=== PATIENT | female | born 1975 | race Caucasian/White ===

== ENCOUNTER 2020-07-13 11:38 | Emergency (ER) | payer OTHER, SELFPAY ==
[2020-07-13 11:39] VITALS: BP 137/83; PULSE 80; RESP 16; TEMP 36.6; O2SAT 97; BMI 28.2
--- NOTE | 2020-07-13 12:03 | ED.VISSUMM ---
- ER Visit Summary Date of Service: 07/13/20 Chief Complaint: Right shoulder pain History of Present Illness: The patient is a 45 F who presents with right shoulder pain that began 2 days ago. Patient states she was at work and camper steps fell onto her right shoulder. Patient was seen at an urgent care and had x-rays. Patient states she was told it was just a bruise. Patient states the pain is getting worse. Patient describes her pain as constant dull and aching. Patient states her pain becomes sharp and stabbing when she moves it and lifts anything. Patient denies any paresthesias or weakness. Patient states the pain does radiate into her neck. Physical Examination: Vital signs are stable. Patient is afebrile. Patient is in no acute distress. Musculoskeletal exam reveals tenderness over the anterior aspect of the right shoulder along the bicep tendon. There is no deformity noted. There is no tenderness over the acromioclavicular joint or distal clavicle. There is no bony crepitance or step-off. There is no edema or ecchymosis. Range of motion was limited in all motions of the right shoulder secondary to pain. Strength is 5/5 in the radial, median, and ulnar areas. Sensation was intact light touch in the radial, median, ulnar, and axillary areas. Radial pulses are equal bilaterally. Test Results: X-rays of the right shoulder were obtained. There is no acute fracture or dislocation. These were interpreted by the radiologist and myself. Emergency Department Course and Treatment: Patient was given a dose of Waldron here. Patient was given an ice pack. Patient was given a sling for comfort. Patient was given a prescription for Naprosyn. Patient was instructed to take her arm out of the sling 4-5 times per day and do range of motion exercises to prevent frozen shoulder. Patient was instructed to follow-up with a primary care physician in 5 to 7 days. Patient understood and was agreeable with the plan. All questions were answered. Disposition: Discharge home Impression: 1. Right shoulder pain 2. Bicep tendinitis This note was generated with [employer] software. It may contain incorrect words, spelling, and punctuation that were not noted in review of the chart prior to signing ED Disposition - Plan for ED Patient: Disposition: Home or Assisted Living Diagnosis: Right anterior shoulder pain, Biceps tendinitis of right shoulder Instructions: ED MARTY, ED Shoulder Pain Uncertain Cause Prescriptions: Naproxen [Naprosyn] 500 mg PO BID PRN #20 tab Prescription Printed Referrals: [facility],Out of [NON-STAFF] - 5-7 Days Noah Scott MD [STAFF PHYSICIAN] - 5-7 Days
--- NOTE | 2020-07-13 12:05 | RAD_ITS ---
STUDY: X-RAY - RIGHT SHOULDER REASON FOR EXAM: Right shoulder pain, fall. TECHNIQUE: 4 view(s) of the shoulder. COMPARISON: None. FINDINGS: Normal glenohumeral articulation. Normal acromioclavicular joint. Normal acromion. Normal humeral head and visualized proximal humerus. The soft tissue structures are unremarkable. There is a calcified granuloma in the right lung and calcified hilar lymph nodes. RAD/Shoulder min 2 Views IMPRESSION: Normal x-ray examination of the right shoulder. Electronically Signed: German Lane MD at 12:29 EDT Tel , Service support ,
[2020-07-13] MEDS: HYDROcodone Bitartrate/Apap 5/325 Tablet PO (12:09)
== END 2020-07-13 13:54 | disposition home or self-care (01) ==
PROVIDERS: Emergency Provider Emergency Medicine
DX: M75.21 Bicipital tendinitis, right shoulder (principal); M25.511 Pain in right shoulder; M54.2 Cervicalgia; W20.8XXA Other cause of strike by thrown, projected or falling object, initial encounter; Y93.9 Activity, unspecified; Y92.9 Unspecified place or not applicable; Y99.0 Civilian activity done for income or pay
CPT/HCPCS: 73030; 99283

== ENCOUNTER 2020-09-23 23:42 | Emergency (ER) | payer OTHER, SELFPAY ==
[2020-09-23 23:43] VITALS: BP 115/75; PULSE 99; RESP 16; TEMP 37; O2SAT 100; BMI 33.0
[2020-09-24] MEDS: 0.9% Normal Saline 1,000 ML 250 ML IV (00:03)
[2020-09-24] MEDS: Ketorolac 15 MG/ML Vial IV (00:03)
--- NOTE | 2020-09-24 00:03 | ED.DCSUM_ITS ---
History of Present Illness Chief Complaint: Abd Pain Informant: Patient Onset: Today Narrative: Sudden burning pain suprapubic wrapping around the left side 10:45 PM after awakening to use the bathroom. States felt some dysuria while urinating when symptoms occurred. No fever. Initial nausea that resolved. No diarrhea. History kidney stones last time 2 years ago there is been no interventions. No medications taken. Denies history of gastric ulcers or kidney injury. Prior similar symptoms: Yes Past Medical History - Allergies and Home Meds Allergies/Adverse Reactions: Allergies dextromethorphan [From Entex PAC] Adverse Reaction (Verified 09/23/20 23:43) NEEDS FOLLOW-UP passes out guaifenesin [From Entex LA] Adverse Reaction (Verified 09/23/20 23:43) NEEDS FOLLOW-UP passes out nitrofurantoin [From Macrobid] Adverse Reaction (Verified 09/23/20 23:43) NEEDS FOLLOW-UP passes out phenylephrine [From Entex LA] Adverse Reaction (Verified 09/23/20 23:43) NEEDS FOLLOW-UP passes out phenylpropanolamine [From Entex LA] Adverse Reaction (Verified 09/23/20 23:43) NEEDS FOLLOW-UP passes out pseudoephedrine [From Entex PAC] Adverse Reaction (Verified 09/23/20 23:43) NEEDS FOLLOW-UP passes out DERMABOND Adverse Reaction (Uncoded 09/23/20 23:43) Rash Primary Care Physician: Woody Fontaine III, MD [STAFF PHYSICIAN] - 3-5 Days Care Physician,No Primary [Primary Care Provider] - Past Medical History: - - Kidney stones Smoking Status: Former smoker Review of Systems General: Denies: Chills, Fever, Sweats Eyes: Denies: Visual changes - bilaterally, Diplopia ENT: Denies: Rhinorrhea, Sore throat Cardiovascular: Denies: Chest pain, Palpitations Respiratory: Denies: Dyspnea, Cough, Dyspnea on exertion Gastrointestinal: Reports: Abdominal pain. Denies: Nausea, Vomiting, Diarrhea, Melena, Hematochezia Genitourinary: Reports: Dysuria. Denies: Hematuria, Frequency Musculoskeletal: Denies: Back pain, Extremity Pain Skin: Denies: Rash, Wounds Neurological: Denies: Headache, Weakness, Numbness Physical Exam Vital Signs/Narrative: Vital Signs Temp Pulse Resp BP Pulse Ox 09/23/20 23:43 98.6 F 99 16 115/75 100 Inital Vital Signs reviewed: Yes General: Well nourished, Well developed, - - Mild uncomfortable. Head: Normocephalic, Atraumatic Eyes: Perrl, EOMI ENT: Moist mucous membranes, No rhinorrhea Neck: Supple, Nontender Cardiovascular: Regular rate, Regular rhythm, No murmurs Respiratory: No distress, CTA bilaterally, Chest nontender Abdomen: Soft, Nontender, Nondistended, Normal bowel sounds, - - Negative McBurney's tenderness, no pain left lower quadrant.. Negative for: Grant's sign Back: Nontender, Normal Inspection. Negative for: CVA tenderness Extremities: Nontender, No edema Skin: Normal color, No rash Neurological: Alert, Oriented x3, Cranial nerves II-XII grossly intact, Normal S trength, Normal Sensation Psychological: Normal affect, Normal Mood Diagnostic/Tx/Re-eval Clinical Impression(s) from Imaging Studies Abdomen/Pelvis CT 09/24/20 23:53 IMPRESSION: There is a small umbilical hernia containing fat. Electronically Signed: Dona West, at 0:51 EST Tel , Service support , Abnormal Lab Results 09/23/20 09/23/20 09/24/20 23:48 23:48 00:10 WBC 8.8 RBC 4.67 Hgb 13.7 Hct 42.4 MCV 90.8 MCH 29.3 MCHC 32.3 RDW Std Deviation 44.8 H RDW Coeff of Darwin 13.5 Plt Count 375 MPV 9.5 Immature Gran % (Auto) 0.200 Neut % (Auto) 56.1 Lymph % (Auto) 26.3 [place] % (Auto) 13.0 H Eos % (Auto) 3.9 Baso % (Auto) 0.5 Absolute Neuts (auto) 4.9 Absolute Lymphs (auto) 2.31 Nucleated RBC % 0 Sodium 140 Potassium 3.8 Chloride 107 Carbon Dioxide 26.0 Anion Gap 7 BUN 11 Creatinine 1.03 H Estim Creat Clear Calc 71.32 Est GFR (MDRD) Af Amer 74 Est GFR (MDRD) Non-Af 61 BUN/Creatinine Ratio 10.7 Glucose 125 H Calcium 9.0 Urine Color Yellow Urine Clarity Cloudy Urine pH 7.0 Ur Specific Fisher 1.010 Urine Protein 30 H Urine Glucose (UA) Normal Urine Ketones Negative Urine Occult Blood 50 H Urine Nitrite Negative Urine Bilirubin Negative Urine Urobilinogen 1 H Ur Leukocyte Esterase 500 H Urine RBC 10-25 SEEN Urine WBC 50-100 SEEN Ur Squamous Epith Cells 0 SEEN Urine Bacteria 0 SEEN Urine Mucus 0 SEEN - Medical Decision Making Patient vitals stable with dysuria sudden pain rating to the back. Renal stone protocol initiated. Labs stable urine noted infection with blood. CT scan negative for any obstructive uropathy. Noted fat-containing umbilical hernia. Patient nontender in this region. Required 2 doses of pain medicines. Rediscussion she states more spasms. She was given Rocephin antibiotics to start in the ED. Written for Bentyl for spasms short prescription for [place], Keflex for antibiotics. Return precautions discussed. Follow-up given as an outpatient. All questions were answered. ED Disposition - Plan for ED Patient: Disposition: Home or Assisted Living Diagnosis: UTI (urinary tract infection), Abdominal pain Instructions: Understanding Urinary Tract Infections (UTIs), ED Bladder Gcn-[id number]-Josmrg chil Prescriptions: Dicyclomine HCl [Bentyl] 10 mg PO TID PRN #20 cap PRN Reason: abdominal pain Prescription Printed Cephalexin [Keflex] 500 mg PO Q12 #14 cap Prescription Printed Hydrocodone Bitart/Apap 5-325 [[place] 5MG-325MG] 1 tab PO Q6H PRN PRN 3 Days #10 tab PRN Reason: Pain Prescription Printed Referrals: Care Physician,No Primary [Primary Care Provider] - Woody Fontaine III, MD [STAFF PHYSICIAN] - 3-5 Days
[2020-09-24 00:04] LABS: Absolute Lymphocyte Count 2.31 X10^3/uL (0.83-4.51); Absolute Neutrophil Count 4.9 X10^3/uL (2.0-7.7); Basophil# 0.04 X10^3/uL; Basophil% 0.5 % (0-1); Eosinophil# 0.34 X10^3/uL; Eosinophils% 3.9 % (0-5); Hematocrit 42.4 % (37-47); Hemoglobin 13.7 g/dL (12.0-15.0); Lymphocyte # 2.31 X10^3/ul (4.0); Lymphocyte % 26.3 % (19-41); Mean Corp Hgb Conc 32.3 g/dL (32-36); Mean Corpuscular Hgb 29.3 pg (27.0-32.0); Mean Corpuscular Volume 90.8 fL (81-99); Mean Platelet Vol. 9.5 fl (6.2-12.0); Monocyte# 1.14 X10^3/uL; NRBC Flagged by Analyzer 0 % (0-5); Neutrophil # 4.93 X10^3/uL (2.7-7.7); Neutrophil % 56.1 % (47-70); Platelet Count 375 K/mm3 (150-450); RBC Distribution Width CV 13.5 % (11.6-14.6); RBC Distribution Width SD 44.8 fl (35.1-43.9); Red Blood Count 4.67 M/mm3 (4.2-5.4); White Blood Count 8.8 K/mm3 (4.4-11.0)
[2020-09-24] MEDS: Morphine 4 MG/ML Syringe IV ×2 (00:04→00:58)
[2020-09-24 00:14] LABS: Anion Gap 7 (5-15); BUN 11 mg/dL (7-18); BUN/Creat Ratio 10.7 RATIO (10-20); Chloride 107 mmol/L (98-107); Creatinine, Serum 1.03 mg/dL (0.55-1.02); EST Glomerular Filtration Rate 61 mL/min (>60); Est Glom Filt Rate - Afr Amer 74 mL/min (>60); Estimated Creatinine Clearance 71.32 ml/min; Glucose 125 mg/dL (74-106); Potassium 3.8 mmol/L (3.5-5.1); Sodium Level 140 mmol/L (136-145)
[2020-09-24 00:14] LABS: Bacteria 0 SEEN /hpf (None Seen); Color, Urine Yellow (Yellow); Glucose, Dipstick Normal (Normal); Ketone-Dipstick Negative (Negative); Leukocyte Esterase-Dipstick 500 /ul (Negative); Mucous, Urine 0 SEEN /hpf (<or=2+); Nitrite-Dipstick Negative (Negative); Occult Blood-Urine 50 /ul (Negative); Protein-Dipstick 30 mg/dl (Negative); Squamous Epithelial Cells - UA 0 SEEN /hpf (5-10); Urine Bilirubin Dipstick Negative (Negative); Urine Urobilinogen 1 mg/dl (Normal)
[2020-09-24 00:16] LABS: Urine Clarity Cloudy (Clear)
[2020-09-24 00:21] LABS: Red Blood Cells-Urine 10-25 SEEN /hpf (0-5); White Blood Cells 50-100 SEEN /hpf (0-5)
[2020-09-24] MEDS: Ceftriaxone 1 GM/50 ML BAG IV (01:44)
[2020-09-24 03:07] VITALS: BP 116/67; PULSE 83; RESP 16; O2SAT 98
--- NOTE | 2020-09-24 23:53 | CT_ITS ---
STUDY: CT ABDOMEN AND PELVIS WITHOUT CONTRAST REASON FOR EXAM: Female, 45 years old. LOW ABDOMEN PAIN AND PAINFUL URINATION -- HX:KIDNEY STONES,CERVICAL CANCER WITH PART OF CERVIX REMOVED,APPENDECTOMY,CHOLECYSTECTOMY,OVARIAN CYSTS RADIATION DOSAGE (If Supplied By Facility): CTDIvol = ( 15.51 ) mGy, DLP = ( 790.69 ) mGycm TECHNIQUE: Transaxial images were obtained from the dome of the diaphragm to the symphysis pubis without oral contrast, and without intravenous contrast. Sagittal and coronal images were reconstructed. Individualized dose optimization techniques were used for this CT. COMPARISON: None. FINDINGS: The visualized lung bases are unremarkable. The visualized portions of the heart are within normal limits. Normal liver. There are surgical clips in the gallbladder fossa consistent with a prior cholecystectomy. Normal spleen. Normal pancreas. Normal bilateral adrenal glands. Normal right kidney. Normal left kidney. Normal visualized stomach. Normal small intestine. Normal colon. There are surgical clips in the region of the appendix consistent with a prior appendectomy. Normal abdominal aorta. Normal inferior vena cava. Normal retroperitoneum. Normal urinary bladder. There is a small umbilical hernia containing fat. Normal osseous structures. CT/Abdomen/Pelvis without Cont IMPRESSION: There is a small umbilical hernia containing fat. Electronically Signed: Dona West, at 0:51 EST Tel , Service support ,
== END 2020-09-24 03:08 | disposition home or self-care (01) ==
PROVIDERS: Emergency Provider Emergency Medicine
DX: N39.0 Urinary tract infection, site not specified (principal); K42.9 Umbilical hernia without obstruction or gangrene; Z87.442 Personal history of urinary calculi; Z87.891 Personal history of nicotine dependence
CPT/HCPCS: 74176; 80048; 81001; 85025; 87077; 87086; 87088; 87186; 96361; 96365; 96375; 96376; 99285; J7030; J7050; A4216

== ENCOUNTER 2021-01-01 12:04 | Emergency (ER) | payer OTHER, SELFPAY ==
[2021-01-01 12:06] VITALS: BP 117/76; PULSE 91; RESP 16; TEMP 35.1; O2SAT 99; BMI 32.8
--- NOTE | 2021-01-01 12:50 | ED.VIS.GEN ---
History of Present Illness Chief Complaint: Fatigue Narrative: 45-year-old female presenting with cough, runny nose, sneezing. She states the onset was Friday when she began having sneeze attacks. Patient states it progressed the next day to coughing and then runny and stuffy nose. Patient has not had a fever. She not short of breath. She is not having any chest pain or palpitations. She states she has no medical problems. Medinger diarrhea. Past Medical History - Allergies and Home Meds Allergies/Adverse Reactions: Allergies dextromethorphan [From Entex PAC] Adverse Reaction (Verified 01/01/21 12:06) NEEDS FOLLOW-UP passes out guaifenesin [From Entex LA] Adverse Reaction (Verified 01/01/21 12:06) NEEDS FOLLOW-UP passes out nitrofurantoin [From Macrobid] Adverse Reaction (Verified 01/01/21 12:06) NEEDS FOLLOW-UP passes out phenylephrine [From Entex LA] Adverse Reaction (Verified 01/01/21 12:06) NEEDS FOLLOW-UP passes out phenylpropanolamine [From Entex LA] Adverse Reaction (Verified 01/01/21 12:06) NEEDS FOLLOW-UP passes out pseudoephedrine [From Entex PAC] Adverse Reaction (Verified 01/01/21 12:06) NEEDS FOLLOW-UP passes out DERMABOND Adverse Reaction (Uncoded 01/01/21 12:06) Rash Primary Care Physician: Care Physician,No Primary [Primary Care Provider] - Prior records reviewed: Yes Past Medical History: - - She denies medical history Surgical History: noncontributory Lives: Spouse/ Significant Other Smoking Status: Former smoker Alcohol: None Drugs: None Review of Systems General: Reports: Malaise. Denies: Chills, Fever, Sweats Eyes: Denies: Visual changes - bilaterally, Diplopia ENT: Reports: Rhinorrhea. Denies: Sore throat Cardiovascular: Denies: Chest pain, Palpitations Respiratory: Reports: Cough. Denies: Dyspnea, Dyspnea on exertion Gastrointestinal: Denies: Abdominal pain, Nausea, Vomiting, Diarrhea, Melena, Hematochezia Genitourinary: Denies: Dysuria, Hematuria, Frequency Musculoskeletal: Denies: Back pain, Extremity Pain Skin: Denies: Rash, Wounds Neurological: Denies: Headache, Weakness, Numbness Psych: Denies: Depression, Anxiety Physical Exam Vital Signs/Narrative: Vital Signs Temp Pulse Resp BP Pulse Ox 01/01/21 12:06 95.2 F L 91 16 117/76 99 Inital Vital Signs reviewed: Yes General: Well nourished, No Acute Distress Head: Normocephalic, Atraumatic Eyes: Perrl, EOMI ENT: Moist mucous membranes, - - Rhinorrhea Cardiovascular: Regular rate, Regular rhythm Respiratory: No distress, CTA bilaterally Skin: Normal color, No rash Neurological: Alert, Oriented x3, Cranial nerves II-XII grossly intact Psychological: Normal affect, Normal Mood Diagnostic/Tx/Re-eval - Medical Decision Making 45-year-old female presenting with flulike symptoms. Her vital signs are stable and she is afebrile. She is nontoxic-appearing. Her symptoms are very mild. I feel she can be tested for Covid and discharged home to quarantine. Patient was given return precautions. Patient stable for discharge. Impression: 1. Viral syndrome ED Disposition - Plan for ED Patient: Disposition: Home or Assisted Living Instructions: Coronavirus Disease 2019 (COVID-19): Caring for Yourself or Others, Preventing the Spread of Infection Understanding Isolation Procedures Referrals: Care Physician,No Primary [Primary Care Provider] -
== END 2021-01-01 13:28 | disposition home or self-care (01) ==
LOC: ED 13:07
PROVIDERS: Emergency Provider Student in an Organized Health Care Education/Training Program
DX: B34.9 Viral infection, unspecified (principal); Z20.822 Contact with and (suspected) exposure to COVID-19; R05 Cough; R09.89 Other specified symptoms and signs involving the circulatory and respiratory systems; R06.7 Sneezing; R19.7 Diarrhea, unspecified; Z87.891 Personal history of nicotine dependence
CPT/HCPCS: 87635; 99282; U0005; U0003

== ENCOUNTER 2022-01-28 18:32 | Emergency (ER) | payer OTHER, SELFPAY ==
[2022-01-28 18:33] VITALS: BP 160/92; PULSE 108; RESP 17; TEMP 36.8; O2SAT 99; BMI 33.9
[2022-01-28 19:59] VITALS: BP 155/78; PULSE 99; RESP 16; O2SAT 97; O2SAT 98
--- NOTE | 2022-01-28 20:02 | CM.ED ---
TEVIN Note Referral Source: Case Find Referral Reason: No PCP SW met with patient in her room. TEVIN advised that this insurance writer had been advised that patient had no PCP. Patient said that she has a PCP but can't recall the name and might be interested in a new provider. SW provided patient with Healthcare Provider Directory. No other concerns or issues voiced. Plan: [facility] BR[facility]
--- NOTE | 2022-01-28 20:35 | RAD_ITS ---
INDICATION: cough EXAMINATION/TECHNIQUE: X-RAY - XR Chest 2 Views COMPARISON: No prior chest imaging. FINDINGS: LINES/DEVICES: None. LUNGS: Symmetric normal lung volumes. No airspace opacity or abnormal interstitial pattern. Calcified pulmonary nodule right lung and hilar calcifications on the right suggest prior granulomatous infection. No pleural effusion or pneumothorax. MEDIASTINUM AND CARDIOVASCULAR STRUCTURES: Normal size and contour of the cardiomediastinal silhouette. No evidence of pulmonary vascular congestion. BONES AND SOFT TISSUES: No abnormality within limits of the exam. RAD/Chest PA and Lateral IMPRESSION: 1. No evidence of acute cardiopulmonary disease. 2. Stigmata of prior granulomatous infection. Electronically Signed: Uli Garcia DO at 21:13 EDT ,
--- NOTE | 2022-01-28 20:46 | EX.ED.DYSGE1 ---
HPI History of Present Illness Chief Complaint: Cough Informant: patient Narrative Narrative: Patient has some complaints of not feeling well for about a week. She states this started with diarrhea without nausea or vomiting. No abdominal pain. That lasted for about 3 days and then that got better and is resolved. She then developed a cough and some myalgias. She has noticed wheezing over the last couple days. She has no history of asthma but has used inhalers in the past. The chart states that she is a some day smoker but she denies ever smoking.. She coughs up some light lara material but no blood. She is not having chest pain. No pleuritic pain. No recent travel surgery immobilization personal family history of DVT or PE. She has not had COVID or the vaccines. No documented fevers. PFSH [facility] Medical History Cholecystectomy planned Environmental allergies Ovarian cyst Home Medications albuterol sulfate [Ventolin HFA] 2 puff INHALATION Q4H PRN PRN #1 inhaler 01/28/22 [Rx Last Taken Unknown] benzonatate 200 mg PO TID PRN PRN #20 cap 01/28/22 [Rx Last Taken Unknown] Allergy/AdvReac Type Severity Reaction Status Date / Time dextromethorphan AdvReac NEEDS Verified 01/28/22 18:33 [From Entex PAC] FOLLOW-UP guaifenesin [From Entex LA] AdvReac NEEDS Verified 01/28/22 18:33 FOLLOW-UP nitrofurantoin AdvReac NEEDS Verified 01/28/22 18:33 [From Macrobid] FOLLOW-UP phenylephrine [From Entex LA] AdvReac NEEDS Verified 01/28/22 18:33 FOLLOW-UP phenylpropanolamine AdvReac NEEDS Verified 01/28/22 18:33 [From Entex LA] FOLLOW-UP pseudoephedrine AdvReac NEEDS Verified 01/28/22 18:33 [From Entex PAC] FOLLOW-UP DERMABOND AdvReac Rash Uncoded 01/28/22 18:33 Surgical History History of appendectomy History of tonsillectomy Social History Smoking Status: Current some day smoker tobacco type: cigarettes ROS ROS ED Constitutional Constitutional ED: Reports subjective Eyes Eyes: Denies blurry vision ENT ENT ED: Reports sore throat and other Details: Mild sore throat but that is better now. ; Denies rhinorrhea Cardiovascular Cardiovascular: Denies chest pain or palpitations Respiratory/Chest Respiratory/Chest: Reports cough, sputum and other Details: See history of present illness Gastrointestinal Gastrointestinal: Reports diarrhea and other Details: See history of present illness. ; Denies abdominal pain, nausea or vomiting Genitourinary Genitourinary ED: Denies dysuria or hematuria Musculoskeletal Musculoskeletal: Reports myalgias Integumentary Denies rash Neurologic Neurologic: Denies headache(s) or weakness Psychiatric Psychiatric: Denies anxiety or depression Endocrine Endocrinology: Denies polydipsia or polyuria Allergic/Immunologic Allergic/Immunologic ED: Denies urticaria EXAM Physical Exam Const Vital Signs: 01/28/22 18:33 01/28/22 19:59 01/28/22 20:53 Temperature 98.2 F Temperature Source Temporal Pulse Rate 108 H 99 86 Respiratory Rate 17 16 18 Respiratory Effort Normal Respiratory Depth Shallow Respiratory Pattern Normal Normal Blood Pressure 160/92 H 155/78 H Blood Pressure Mean 114 103 Pulse Ox 99 98 Oxygen Delivery Method Room Air Room Air 01/28/22 21:59 Temperature Temperature Source Pulse Rate 66 Respiratory Rate 16 Respiratory Effort Respiratory Depth Respiratory Pattern Blood Pressure 152/76 H Blood Pressure Mean 101 Pulse Ox 98 Oxygen Delivery Method Room Air MDM MDM MDM Narrative Medical decision making narrative: Patient's Covid and influenza are negative. Chest x-ray shows no acute process. The inhaler did help her somewhat. She now states that she has used albuterol and does not have a problem. I will write for this. We will write for Tessalon. Her symptoms are most consistent with a viral illness. I do not think she needs antibiotics. We did discuss reasons to return and needed follow-up. Lab Data Attestation: I reviewed the patient's lab results. Radiography Diagnostic Testing: Clinical Impression(s) from Imaging Studies Chest X-Ray 01/28/22 20:35 IMPRESSION: 1. No evidence of acute cardiopulmonary disease. 2. Stigmata of prior granulomatous infection. Electronically Signed: Uli Garcia DO at 21:13 EDT , Discharge Plan Triage Chief Complaint: Cough ED Provider: Edwin Nina Dx/Rx/DC Orders Clinical Impression: Acute viral syndrome, Acute bronchospasm Instructions: ED Bronchitis with Wheezing (Adult) Prescriptions: New benzonatate [benzonatate] 100 MG capsule 200 mg PO TID PRN PRN (Reason: Cough) Qty: 20 RF: 0 albuterol sulfate [Ventolin HFA] 1 INHALER inhaler 2 puff inhalation Q4H PRN PRN (Reason: Wheezing) Qty: 1 RF: 0 Primary Care Provider: Care Physician,No Primary Referrals: Bin Lakhani MD [STAFF PHYSICIAN] - 3-5 Days if not improving Care Physician,No Primary [Primary Care Provider] - Disposition Disposition: Home, Self Care
[2022-01-28] MEDS: Ipratropium 0.5 MG/2.5 ML SOLUTION INHALATION (20:50)
[2022-01-28 20:53] VITALS: PULSE 86; RESP 18
[2022-01-28 21:59] VITALS: BP 152/76; PULSE 66; RESP 16; O2SAT 98
[2022-01-28 22:45] VITALS: BP 126/78; PULSE 64; RESP 18; TEMP 36.9; O2SAT 98
[2022-01-28] MEDS: Benzonatate 100 MG Capsule 200 MG PO (22:47)
== END 2022-01-28 22:48 | disposition home or self-care (01) ==
PROVIDERS: Emergency Provider Emergency Medicine; Visit Provider Emergency Medicine
DX: B34.9 Viral infection, unspecified (principal); J98.01 Acute bronchospasm; M79.10 Myalgia, unspecified site; Z20.822 Contact with and (suspected) exposure to COVID-19; F17.210 Nicotine dependence, cigarettes, uncomplicated
CPT/HCPCS: 71046; 87804; 87811; 94640; 99283

== ENCOUNTER 2022-02-06 17:25 | Emergency (ER) | payer OTHER, SELFPAY ==
[2022-02-06 17:26] VITALS: BP 104/71; PULSE 94; RESP 14; TEMP 36.6; O2SAT 99; BMI 32.5
--- NOTE | 2022-02-06 17:49 | EDS_ITS ---
HPI History of Present Illness HPI Narrative: Patient presents with left wrist injury that occurred last night. Patient states she fell off of a boat and landed onto the concrete. Patient landed on her outstretched left wrist. Patient states she fell approximately 7 feet. Patient states her pain is worse today. Patient states her pain is worse with certain movements. Patient denies any head injury paresthesias or weakness. Patient denies any other injuries. Chief Complaint: Upper Extremity Injury Informant: patient Occured/Mechanism Mechanism/Context: Yes fall Onset/Context/Timing Onset: Yesterday Context: Sudden Onset Timing: Continuous Quality of Pain: Aching and Stabbing Location: Left wrist Worsened by: Movement Relieved by: Nothing Associated Symptoms Associated Symptoms: Negative for Parasthesia, Weakness and Loss of Funtion PFSH PFSH Medical History Cholecystectomy planned Environmental allergies Ovarian cyst Home Medications albuterol sulfate [Ventolin HFA] 2 puff INHALATION Q4H PRN PRN #1 inhaler 01/28/22 [Rx Last Taken Unknown] benzonatate 200 mg PO TID PRN PRN #20 cap 01/28/22 [Rx Last Taken Unknown] Allergy/AdvReac Type Severity Reaction Status Date / Time dextromethorphan AdvReac NEEDS Verified 02/06/22 17:28 [From Entex PAC] FOLLOW-UP guaifenesin [From Entex LA] AdvReac NEEDS Verified 02/06/22 17:28 FOLLOW-UP nitrofurantoin AdvReac NEEDS Verified 02/06/22 17:28 [From Macrobid] FOLLOW-UP phenylephrine [From Entex LA] AdvReac NEEDS Verified 02/06/22 17:28 FOLLOW-UP phenylpropanolamine AdvReac NEEDS Verified 02/06/22 17:28 [From Entex LA] FOLLOW-UP pseudoephedrine AdvReac NEEDS Verified 02/06/22 17:28 [From Entex PAC] FOLLOW-UP DERMABOND AdvReac Rash Uncoded 02/06/22 17:28 Surgical History History of appendectomy History of tonsillectomy Social History Smoking Status: Never smoker ROS ROS ED Constitutional Constitutional ED: Denies chills or fever(s) Eyes Eyes: Denies blurry vision or change in vision ENT ENT ED: Denies rhinorrhea or sore throat Cardiovascular Cardiovascular: Denies chest pain or palpitations Respiratory/Chest Respiratory/Chest: Reports cough; Denies dyspnea Gastrointestinal Gastrointestinal: Denies nausea or vomiting Genitourinary Genitourinary ED: Denies dysuria or hematuria Musculoskeletal Musculoskeletal: Denies back pain or neck pain Integumentary Denies abscess or rash Neurologic Neurologic: Denies headache(s) or weakness Allergic/Immunologic Allergic/Immunologic ED: Denies mouth swelling or urticaria EXAM Physical Exam Const Vital Signs: 02/06/22 17:26 Temperature 97.8 F Temperature Source Temporal Pulse Rate 94 Respiratory Rate 14 Blood Pressure 104/71 Blood Pressure Mean 82 Pulse Ox 99 Oxygen Delivery Method Room Air Positive well nourished and well developed General Appearance ED: well developed and NAD HEENT Reports moist mucous membranes Neck full ROM Extremity Extremity Narrative: There is tenderness over the radial aspect of the left wrist and first and second metacarpals. There is no bony crepitance or step- off. There are some mild edema. There is no obvious deformity noted. Range of motion was limited in all motions of the left wrist and hand secondary to pain. Sensation was intact to light touch in the radial, median, and ulnar areas. Strength is 5/5 in the radial, median, and ulnar areas. Radial pulses are equal bilaterally. Neuro oriented x3, CN's II-XII intact bilaterally, moves all extremities, no focal motor deficits and no sensory deficits noted Sensorium / Orientation: alert Psych mental status grossly normal MDM MDM MDM Narrative Medical decision making narrative: X-rays of the left wrist were obtained. There are 3 views. On my interpretation, there is no acute fracture. There is no dislocation. There is no soft tissue swelling. Radiologist also interpreted the x-rays and agrees. Patient was advised of the findings. Patient was advised that there could be an occult scaphoid fracture. Patient was given a thumb spica splint. Patient was instructed to ice and elevate the left wrist. Patient was instructed to take Tylenol or ibuprofen as needed for pain. Patient was instructed to follow-up with her primary care physician in 1 to 2 weeks for reevaluation. Patient was advised that if she still has pain in that area at that time she may need a repeat x-ray. Patient understood and was agreeable with the plan. All questions were answered. Discharge Plan Triage Chief Complaint: Upper Extremity Injury ED Provider: Cabrera Summers Dx/Rx/DC Orders Clinical Impression: Left wrist sprain Instructions: ED Wrist Sprain Prescriptions: No Action benzonatate [benzonatate] 100 MG capsule 200 mg PO TID PRN PRN (Reason: Cough) Qty: 20 RF: 0 albuterol sulfate [Ventolin HFA] 1 INHALER inhaler 2 puff inhalation Q4H PRN PRN (Reason: Wheezing) Qty: 1 RF: 0 Referrals: Tawanda Carroll [Other] - 1-2 Weeks Disposition Disposition: Home, Self Care
--- NOTE | 2022-02-06 17:55 | RAD_ITS ---
STUDY: XR Wrist Min 3 Views REASON FOR EXAM: Female, 46 years old. PAIN Pain in her left wrist. Fell off of her boat last night while she was cleaning it. TECHNIQUE: XR Wrist Min 3 Views COMPARISON: None FINDINGS: There are no acute findings of the visualized distal radius and ulna. There are no acute findings of the radiocarpal articulation. Normal distal radioulnar articulation. Normal carpal bones. Normal carpal articulations. There are no acute findings of the carpometacarpal articulation of the thumb. Normal second through fifth carpometacarpal articulations. There are no acute findings of the visualized metacarpal bones. The soft tissue structures are unremarkable. RAD/Wrist min 3 Views IMPRESSION: There are no acute findings of the wrist. Electronically Signed: Addi Suazo MD at 18:23 EDT ,
== END 2022-02-06 20:22 | disposition home or self-care (01) ==
PROVIDERS: Emergency Provider Emergency Medicine; Visit Provider Emergency Medicine
DX: S63.92XA Sprain of unspecified part of left wrist and hand, initial encounter (principal); V94.0XXA Hitting object or bottom of body of water due to fall from watercraft, initial encounter; V92.09XA Drowning and submersion due to fall off unspecified watercraft, initial encounter; Y92.814 Boat as the place of occurrence of the external cause
CPT/HCPCS: 73110; 99283

== ENCOUNTER 2023-03-31 06:01 | Emergency (ER) | payer SELFPAY ==
[2023-03-31 06:01] VITALS: BP 139/85; PULSE 85; RESP 16; TEMP 36.2; O2SAT 95; BMI 35.6
--- NOTE | 2023-03-31 06:19 | EDS_ITS ---
HPI History of Present Illness Chief Complaint: Upper Extremity Injury Informant: patient Associated Symptoms Associated Symptoms: Positive for Parasthesia (Right hand fingers 3, 4, 5); Negative for Weakness or Loss of Funtion Narrative Narrative: Patient states she was taking her Rottweiler out for a walk this morning, and the dog suddenly lunged at something, pulling the chain that she had in her right hand tight, it was wrapped around her right wrist and therefore injured it at the ulnar aspect, and she then fell against the door jam injuring the area just proximal to this in her distal ulnar right forearm. She also as a result of this has some tingling in fingers 3, 4, 5. Her fingers work okay, but moving the makes her wrist hurt worse. No other injuries. [id number]. [facility] Medical History (Updated 03/31/23 @ 07:[address] Zachary Fermin MD) Acute bronchitis, unspecified Cholecystectomy planned Cough Environmental allergies Ovarian cyst Home Medications albuterol sulfate 90 mcg/actuation aerosol inhaler (Ventolin HFA) 2 puff inhalation Q4H PRN PRN Wheezing ##1 01/28/22 [Rx Last Taken Unknown] benzonatate 100 mg capsule 200 mg PO TID PRN PRN Cough #20 caps 01/28/22 [Rx Last Taken Unknown] benzonatate 200 mg capsule 200 mg PO TID PRN cough #20 caps 06/17/22 [Rx Last Taken Unknown] levofloxacin 500 mg tablet 500 mg PO DAILY #10 tabs 06/17/22 [Rx Last Taken Unknown] Allergy/AdvReac Type Severity Reaction Status Date / Time dextromethorphan AdvReac NEEDS Verified 03/31/23 06:04 [From Entex PAC] FOLLOW-UP Dressing: Non-Medicated AdvReac Rash Verified 03/31/23 06:04 [bandage] guaifenesin [From Entex LA] AdvReac NEEDS Verified 03/31/23 06:04 FOLLOW-UP nitrofurantoin AdvReac NEEDS Verified 03/31/23 06:04 [From Macrobid] FOLLOW-UP phenylephrine [From Entex LA] AdvReac NEEDS Verified 03/31/23 06:04 FOLLOW-UP phenylpropanolamine AdvReac NEEDS Verified 03/31/23 06:04 [From Entex LA] FOLLOW-UP pseudoephedrine AdvReac NEEDS Verified 03/31/23 06:04 [From Entex PAC] FOLLOW-UP Surgical History History of appendectomy History of tonsillectomy Social History Smoking Status: Never smoker ROS ROS ED Constitutional Constitutional ED: Denies chills or fever(s) Musculoskeletal Musculoskeletal: Reports extremity pain; Denies neck pain Integumentary Denies Abrasions, rash or wounds Neurologic Neurologic: Reports paresthesias RUE; Denies weakness EXAM Physical Exam Const Vital Signs: 03/31/23 06:01 Temperature 97.1 F L Temperature Source Temporal Pulse Rate 85 Respiratory Rate 16 Blood Pressure 139/85 H Blood Pressure Mean 103 Pulse Ox 95 Oxygen Delivery Method Room Air Positive well nourished and well developed General Appearance ED: well developed and NAD Neck full ROM and supple Back/Spine normal ROM and normal to inspection Extremity normal to inspection Extremity Narrative: Right upper extremity: Limited range of motion of the wrist and fingers due to pain at the wrist. There is an abrasion at the distal ulna, just proximal to the wrist. The ulna is tender in this area and all the way down to the ulnar styloid, and there is also tenderness at the ulnar aspect of the carpus. No metacarpal or other hand tenderness. No tenderness at the radial aspect of the bones of the wrist. Nontender at the elbow, full range of motion there, and the other 3 extremities are benign. Neuro oriented x3, no focal motor deficits, no sensory deficits noted and gait normal Sensorium / Orientation: alert Psych mental status grossly normal and thought process normal Skin no wounds Rashes: no rashes MDM MDM MDM Narrative Medical decision making narrative: Three-view x-ray series of the right wrist on my interpretation negative for any fracture or dislocation. Radiology in agreement. Patient reassured, offered an Valeriano wrap, dose of Naprosyn, she is also asking for a work note which will be given. Discharge Plan Triage Chief Complaint: Upper Extremity Injury ED Provider: Zachary Fermin Dx/Rx/DC Orders Clinical Impression: Contusion of right wrist Instructions: ED Soft Tissue Contusion Prescriptions: No Action levofloxacin 500 mg tablet 500 mg PO DAILY Qty: 10 0RF benzonatate 200 mg capsule 200 mg PO TID PRN (Reason: cough) Qty: 20 0RF benzonatate [benzonatate] 100 MG capsule 200 mg PO TID PRN PRN (Reason: Cough) Qty: 20 0RF albuterol sulfate [Ventolin HFA] 1 INHALER inhaler 2 puff inhalation Q4H PRN PRN (Reason: Wheezing) Qty: 1 0RF Stand Alone Forms: ED Work / School Excuse Primary Care Provider: Care Physician,No Primary Referrals: Doctor,Your [Non-Staff] - 1 Week if not improving Disposition Disposition: Home, Self Care
--- NOTE | 2023-03-31 06:50 | RAD_ITS ---
EXAM: XR RIGHT WRIST COMPLETE, 3 OR MORE VIEWS CLINICAL INDICATION: injury TECHNIQUE: Frontal, lateral and oblique views of the right wrist. COMPARISON: No relevant prior studies available. FINDINGS: BONES/JOINTS: Unremarkable. No acute fracture. No subluxation. Normal alignment. Preservation of the joint space. No sclerotic or destructive changes observed. SOFT TISSUES: Unremarkable. No soft tissue swelling or gas. No radiopaque foreign body. RAD/Wrist min 3 Views IMPRESSION: Negative right wrist x-rays. Electronically Signed: Sindy Chavez MD at 7:04 EDT ,
[2023-03-31] MEDS: Naproxen 250 MG Tablet 500 MG PO (07:23)
== END 2023-03-31 07:26 | disposition home or self-care (01) ==
PROVIDERS: Emergency Provider Emergency Medicine; Visit Provider Emergency Medicine
DX: S60.211A Contusion of right wrist, initial encounter (principal); X50.9XXA Other and unspecified overexertion or strenuous movements or postures, initial encounter; Y93.K1 Activity, walking an animal
CPT/HCPCS: 73110; 99283

== ENCOUNTER 2023-09-09 08:09 | Emergency (ER) | payer OTHER, SELFPAY ==
[2023-09-09 08:10] VITALS: BP 141/88; PULSE 88; RESP 16; TEMP 36.4; O2SAT 99
[2023-09-09 08:12] VITALS: BMI 34.8
[2023-09-09] MEDS: Ibuprofen 400 MG Tablet 800 MG PO (08:31)
--- NOTE | 2023-09-09 08:32 | ED.VIS.LOWEX ---
HPI History of Present Illness Chief Complaint: Lower Extremity Injury Narrative Narrative: 48-year-old female who denies significant past medical history presents with injury to her right foot that she sustained approximately 1 to 2 hours ago. She was taking care of her horse earlier this morning, wearing tennis shoes, when something spooked her horse, he reportedly reared up, and stepped on the dorsum of her right foot. She states that she is having pain mainly on the dorsum of her right foot from her middle toe, and laterally. She denies other injury. She has pain that is worse with weightbearing and walking. This injury is described by her as a horse wearing up, stepping on her foot, and sliding off. She was stepped on by the horses front foot when it came down from her rearing. [facility] Medical History (Updated 09/09/23 @ 10:18 by Ed Lopez MD) Acute bronchitis, unspecified Cholecystectomy planned Cough Environmental allergies Ovarian cyst Home Medications cetirizine 10 mg tablet (Zyrtec) 10 mg PO DAILY 09/09/23 [History Last Taken Unknown] fluticasone propionate 50 mcg/actuation nasal spray,suspension (24 Hour Allergy Relief) 2 spray intranasal DAILY 09/09/23 [History Last Taken Unknown] Allergy/AdvReac Type Severity Reaction Status Date / Time dextromethorphan AdvReac NEEDS Verified 09/09/23 08:12 [From Entex PAC] FOLLOW-UP Dressing: Non-Medicated AdvReac Rash Verified 09/09/23 08:12 [bandage] guaifenesin [From Entex LA] AdvReac NEEDS Verified 09/09/23 08:12 FOLLOW-UP nitrofurantoin AdvReac NEEDS Verified 09/09/23 08:12 [From Macrobid] FOLLOW-UP phenylephrine [From Entex LA] AdvReac NEEDS Verified 09/09/23 08:12 FOLLOW-UP phenylpropanolamine AdvReac NEEDS Verified 09/09/23 08:12 [From Entex LA] FOLLOW-UP pseudoephedrine AdvReac NEEDS Verified 09/09/23 08:12 [From Entex PAC] FOLLOW-UP Surgical History History of appendectomy History of tonsillectomy Social History Smoking Status: Never smoker ROS ROS ED ROS Narrative Constitutional: No fever, no chills. HEENT: No sore throat. No neck pain. No loss of vision. No rhinorrhea. Cardiovascular: No chest pain. No palpitations. No pedal edema. Respiratory: No cough, no shortness of breath. Abdominal: No abdominal pain. No nausea. No vomiting. Genitourinary: No dysuria. No hematuria. Musculoskeletal: No myalgias. Right foot pain. Neurologic: No headaches. No dizziness. No lightheadedness. Skin: No rash. No change in color. Psychiatric: No depression. No anxiety. EXAM Physical Exam Narrative Exam Narrative: Afebrile. Vital signs noted. HEENT: Normocephalic. Atraumatic. PERRL, EOMI. Neck soft and supple. No point tenderness or step off. Cardiovascular: Regular rate and rhythm. No murmurs, rubs, or gallops appreciated. Respiratory: No tachypnea. Lungs clear to auscultation bilaterally. Gastrointestinal: Abdomen soft, nontender, with normoactive bowel sounds. No rebound or guarding. Neurological: Awake. Alert. Nonfocal, nonlateralizing. Skin: No rash. Normal color. No pallor. Musculoskeletal: No pedal edema. Full range of motion extremities. Mild tenderness to palpation dorsum of right foot along third tarsal bone laterally. No crepitance. No break in the skin. Uninjured ankle and above. No malleoli or tenderness. No obvious deformity. Palpable dorsalis pedis pulse. Const Vital Signs: 09/09/23 08:10 09/09/23 11:13 Temperature 97.6 F L 98.6 F Temperature Source Temporal Pulse Rate 88 81 Respiratory Rate 16 16 Blood Pressure 141/88 H 138/70 H Blood Pressure Mean 105 92 Pulse Ox 99 97 Oxygen Delivery Method Room Air MDM MDM MDM Narrative Medical decision making narrative: Administered ibuprofen 800 mg orally for analgesia. X-rays were obtained of the right foot in 3 views. Concern is for foot contusion versus fracture of foot. X-rays interpreted by myself independently shows no evidence of an acute fracture. I reviewed the radiology report which confirms my independent interpretation of no evidence of fracture. At this point in time, she was made weightbearing as tolerated and placed in a postoperative shoe. For her foot contusion/crush injury she will continue ice and elevation at home and continue [id number] analgesics as I do not feel narcotic pain medication is indicated. She was given the number to the melter operator on-call for follow-up as needed, otherwise she can follow-up with her primary care physician. I do not feel she requires transfer at this time. Return instructions to the emergency department were reviewed. Disposition is discharged home in stable condition. Radiography Diagnostic Testing: Clinical Impression(s) from Imaging Studies Foot X-Ray 09/09/23 08:45 IMPRESSION: Small plantar spur. Electronically Signed: Pop Scott MD at 9:05 EDT , Discharge Plan Triage Chief Complaint: Lower Extremity Injury ED Provider: Ed Lopez Dx/Rx/DC Orders Clinical Impression: Contusion of foot, right, Crush injury of right foot Instructions: ED Foot Contusion, ED Crush Injury, Foot/Toe Prescriptions: No Action cetirizine [Zyrtec] 10 mg tablet 10 mg PO DAILY fluticasone propionate [24 Hour Allergy Relief] 50 mcg/actuation spray,suspension 2 spray intranasal DAILY Rx Instructions: administer into each nostril Stand Alone Forms: ED Work / School Excuse Primary Care Provider: Care Physician,No Primary Referrals: Sarwat Blackwood DPM [Med Staff - Active Staff] - 1 Week if not improving Care Physician,No Primary [Primary Care Provider] - Activity Restrictions/Additional Instructions: Ice and elevate your foot when possible. Wear postop shoe when ambulating. Follow-up with podiatry if no improvement in 7 to 10 days. Disposition Disposition: Home, Self Care Discharge Date/Time: 09/09/23 11:16
--- NOTE | 2023-09-09 08:45 | RAD_ITS ---
STUDY: X-RAY - RIGHT FOOT CLINICAL: Female, 48 years old. Pain along the dorsal aspect of the foot following injury. TECHNIQUE: 3 view(s) of the foot. COMPARISON: None. FINDINGS: There is a plantar calcaneal spur. Normal visualized subtalar, talonavicular, calcaneocuboid, tarsal and tarsometatarsal articulations. Normal metatarsi. Normal metatarsophalangeal joint of the great toe. Normal tibial and fibular sesamoid bones. Normal interphalangeal joint of the great toe. Normal phalanges of the great toe. Normal second through fifth metatarsophalangeal joints. Normal interphalangeal joints and phalanges of the lesser toes. The soft tissue structures are unremarkable. RAD/Foot min 3 Views IMPRESSION: Small plantar spur. Electronically Signed: Pop Scott MD at 9:05 EDT ,
[2023-09-09 11:13] VITALS: BP 138/70; PULSE 81; RESP 16; TEMP 37; O2SAT 97
== END 2023-09-09 11:16 | disposition home or self-care (01) ==
PROVIDERS: Emergency Provider Emergency Medicine; Visit Provider Emergency Medicine
DX: S90.31XA Contusion of right foot, initial encounter (principal); S97.81XA Crushing injury of right foot, initial encounter; W55.89XA Other contact with other mammals, initial encounter; Y93.K9 Activity, other involving animal care
CPT/HCPCS: 73630; 99283

== ENCOUNTER → 2023-11-29 | Outpatient (CLI) | payer OTHER, SELFPAY ==
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
[2023-11-29 10:25] LABS: Absolute Lymphocyte Count 1.49 X10^3/uL (0.83-4.51); Absolute Neutrophil Count 3.7 X10^3/uL (2.0-7.7); Basophil# 0.03 X10^3/uL; Basophil% 0.5 % (0-1); Eosinophil# 0.22 X10^3/uL; Eosinophils% 3.5 % (0-5); Hematocrit 41.6 % (37-47); Hemoglobin 13.4 g/dL (12.0-15.0); Lymphocyte # 1.49 X10^3/ul (0.83-4.51); Lymphocyte % 23.7 % (19-41); Mean Corp Hgb Conc 32.2 g/dL (32-36); Mean Corpuscular Hgb 29.3 pg (27.0-32.0); Mean Corpuscular Volume 90.8 fL (81-99); Mean Platelet Vol. 9.7 fl (6.2-12.0); Monocyte% 12.7 % (0-10); NRBC Flagged by Analyzer 0 % (0-5); Neutrophil # 3.74 X10^3/uL (2.7-7.7); Neutrophil % 59.3 % (47-70); Platelet Count 350 K/mm3 (150-450); RBC Distribution Width CV 14.3 % (11.6-14.6); RBC Distribution Width SD 47.8 fl (35.1-43.9); Red Blood Count 4.58 M/mm3 (4.2-5.4); White Blood Count 6.3 K/mm3 (4.4-11.0)
[2023-11-29 10:51] LABS: AST(SGOT) 15 U/L (15-37); Alanine Aminotransfer ALT/SGPT 23 U/L (13-56); Albumin, Serum 3.8 g/dL (3.2-5.0); Alkaline Phosphatase 66 U/L (45-117); Anion Gap 6 (5-15); BUN 10 mg/dL (7-18); BUN/Creat Ratio 11.1 RATIO (10-20); Calcium,Total 9.1 mg/dL (8.5-10.1); Chloride 107 mmol/L (98-107); Cholesterol 200 mg/dL (200); EST Glomerular Filtration Rate 71 mL/min (>60); Est Glom Filt Rate - Afr Amer 86 mL/min (>60); Glucose 111 mg/dL (74-106); High Density Lipoprotein 32 mg/dL; Magnesium 2.2 mg/dL (1.6-2.6); Potassium 4.3 mmol/L (3.5-5.1); Protein, Total 7.8 g/dL (6.4-8.2); Sodium Level 139 mmol/L (136-145); Thyroid Stim Hormone (TSH) 2.67 uIU/mL (0.358-3.74); Triglycerides 122 mg/dL; Very Low Density Lipoprotein 24 mg/dL (5-40)
[2023-12-02 11:11] LABS: Hemoglobin A1c 5.9 % (3.8-5.6)
== END | disposition home or self-care (01) ==
PROVIDERS: PCP Family Medicine; Referring Provider Family Medicine; Visit Provider Family Medicine
DX: R03.0 Elevated blood-pressure reading, without diagnosis of hypertension (principal)
CPT/HCPCS: 80053; 80061; 83036; 83735; 84443; 85025

== ENCOUNTER 2024-04-25 14:39 | Emergency (ER) | payer OTHER, SELFPAY ==
[2024-04-25 14:41] VITALS: BP 131/86; PULSE 89; RESP 16; TEMP 35.9; O2SAT 98; BMI 32.5
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
[2024-04-25 17:27] VITALS: BP 131/86; PULSE 89; RESP 16; TEMP 35.9; O2SAT 98
== END 2024-04-25 17:31 | disposition home or self-care (01) ==
PROVIDERS: Emergency Provider Emergency Medicine; PCP Family Medicine; Visit Provider Emergency Medicine
DX: S80.01XA Contusion of right knee, initial encounter (principal); S90.31XA Contusion of right foot, initial encounter; S20.211A Contusion of right front wall of thorax, initial encounter; S70.01XA Contusion of right hip, initial encounter; S50.01XA Contusion of right elbow, initial encounter; V53.6XXA Passenger in pick-up truck or van injured in collision with car, pick-up truck or van in traffic accident, initial encounter; Y92.89 Other specified places as the place of occurrence of the external cause
CPT/HCPCS: 71101; 73080; 73502; 73564; 73630; 99282

== ENCOUNTER 2025-02-06 16:29 | Emergency (ER) | payer BC, SELFPAY ==
[2025-02-06 16:30] VITALS: BP 138/109; PULSE 79; RESP 23; TEMP 36.1; O2SAT 100; BMI 34.2
--- NOTE | 2025-02-06 16:40 | RAD_ITS ---
PROCEDURE: ANKLE MIN 3 VIEWS 02/06/2025 REASON FOR EXAM: INJURY TECHNIQUE: Left ankle three-view COMPARISON: None FINDINGS: Soft tissue swelling. The mortise is intact. No evidence of acute fracture. Plantar and Achilles spurring RAD/Ankle min 3 Views IMPRESSION: Soft tissue swelling. No acute fracture Reading Location: [id number]
--- NOTE | 2025-02-06 16:40 | ED.VIS.LOWEX ---
HPI <RAJAN Carey - Last Filed: 02/06/25 18:17> History of Present Illness Chief Complaint: Lower Extremity Injury Narrative Narrative: Patient presenting today with pain to her left ankle after an injury occurred this afternoon. She was walking down the stairs when she missed a step and her left foot bent back behind her. She is able to ambulate but it is painful to bear weight. She denies hitting her head or any other injury. PFSH <RAJAN Carey - Last Filed: 02/06/25 18:17> PFSH Medical History Acute bronchitis, unspecified Cough Cholecystectomy planned Ovarian cyst Environmental allergies Home Medications ?Medication ?Instructions ?Recorded ?Last Taken ?Type cetirizine 10 mg tablet (Zyrtec) 10 mg PO DAILY 09/09/23 Unknown History fluticasone propionate 50 2 spray intranasal DAILY 09/09/23 Unknown History mcg/actuation nasal spray,suspension (24 Hour Allergy Relief) Allergy/AdvReac Type Severity Reaction Status Date / Time dextromethorphan (From Entex AdvReac NEEDS Verified 02/06/25 16:29 PAC) FOLLOW-UP Dressing: Non-Medicated AdvReac Rash Verified 02/06/25 16:29 (bandage) guaifenesin (From Entex [place]) AdvReac NEEDS Verified 02/06/25 16:29 FOLLOW-UP nitrofurantoin (From AdvReac NEEDS Verified 02/06/25 16:29 Macrobid) FOLLOW-UP phenylephrine (From Entex [place]) AdvReac NEEDS Verified 02/06/25 16:29 FOLLOW-UP phenylpropanolamine (From AdvReac NEEDS Verified 02/06/25 16:29 Entex [place]) FOLLOW-UP pseudoephedrine (From Entex AdvReac NEEDS Verified 02/06/25 16:29 PAC) FOLLOW-UP Surgical History History of appendectomy History of tonsillectomy Social History Smoking Status: Never smoker ROS <RAJAN Carey - Last Filed: 02/06/25 18:17> ROS ED Constitutional Constitutional ED: Denies chills or fever(s) Cardiovascular Cardiovascular: Denies chest pain Respiratory/Chest Respiratory/Chest: Denies dyspnea Musculoskeletal Musculoskeletal: Reports arthralgias Integumentary Denies Abrasions Neurologic Neurologic: Denies paresthesias EXAM <RAJAN Carey - Last Filed: 02/06/25 18:17> Physical Exam Const Vital Signs: 02/06/25 16:30 02/06/25 17:06 Temperature 97 F L 98 F Temperature Source Temporal Pulse Rate 79 89 Respiratory Rate 23 H 14 Blood Pressure 138/109 H 125/99 H Blood Pressure Mean 118 107 Pulse Ox 100 100 Oxygen Delivery Method Room Air Positive well nourished, well developed and no apparent distress General Appearance ED: well developed HEENT Reports normocephalic and head/scalp atraumatic Mouth ED: Yes moist mucous membranes normal Eyes PERRL and EOMs intact bilaterally Neck full ROM and supple Chest Wall inspection of chest normal Resp normal respiratory effort and clear to auscultation bilaterally Cardio regular rate and regular rhythm Back/Spine normal ROM and normal to inspection Extremity Extremity Narrative: Tenderness and soft tissue swelling to the left lateral malleolus, no tenderness to the medial malleolus. No proximal fibular tenderness, no left foot tenderness or tenderness to the head of the fifth metatarsal. Left DP pulse 2+, good cap refill, sensation intact. Limited range of motion to the left ankle due to pain. Neuro oriented x3, CN's II-XII intact bilaterally, moves all extremities, no focal motor deficits and no sensory deficits noted Sensorium / Orientation: awake and alert Psych mental status grossly normal and thought process normal Skin no rashes or lesions noted and no wounds <Dr. Fidencio Stanley MD - Last Filed: 02/06/25 19:17> Physical Exam Const Vital Signs: 02/06/25 16:30 02/06/25 17:06 Temperature 97 F L 98 F Temperature Source Temporal Pulse Rate 79 89 Respiratory Rate 23 H 14 Blood Pressure 138/109 H 125/99 H Blood Pressure Mean 118 107 Pulse Ox 100 100 Oxygen Delivery Method Room Air MDM <RAJAN Carey - Last Filed: 02/06/25 18:17> MDM MDM Narrative Medical decision making narrative: Patient presenting today with left ankle pain after an injury going down the stairs this afternoon. She has tenderness to the left lateral malleolus with soft tissue swelling. She is neurovascularly intact. X-ray will be obtained to assess for fracture. I offered analgesia and she declined. X-ray is negative for fracture. She was given an Valeriano wrap. RICE instructions discussed, she can alternate Tylenol and ibuprofen as needed for pain. She is able to ambulate. She will be discharged home in stable condition. I have personally performed a face to face assessment of the patient and have reviewed the CRISTIANO Note. I performed a substantive portion of the visit including all aspects of the following. My moreno findings include: History is remarked for injury to left ankle. Has remote history of injury. She localizes pain laterally. Exam is remarkable pain posterior distal 3 to 4 cm of the lateral malleolus. There is no laxity with drawer testing. There is no pain ovation of the base of the fifth metatarsal. DP pulses palpable. There is no neurologic findings. Medical Decision Making per the [place] ankle rule patient will need an x-ray to evaluate for sprain versus fracture. Other additions or changes: [None] Radiography X-Ray: Read by ED Physician Diagnostic Testing: Clinical Impression(s) from Imaging Studies Ankle X-Ray 02/06/25 16:40 IMPRESSION: Soft tissue swelling. No acute fracture Reading Location: [id number] <Dr. Fidencio Stanley MD - Last Filed: 02/06/25 19:17> [facility] Narrative Medical decision making narrative: Patient presenting today with left ankle pain after an injury going down the stairs this afternoon. She has tenderness to the left lateral malleolus with soft tissue swelling. X-ray will be obtained to assess for fracture. I offered analgesia and she declined. I have personally performed a face to face assessment of the patient and have reviewed the CRISTIANO Note. I performed a substantive portion of the visit including all aspects of the following. My moreno findings include: History is remarked for injury to left ankle. Has remote history of injury. She localizes pain laterally. Exam is remarkable pain posterior distal 3 to 4 cm of the lateral malleolus. There is no laxity with drawer testing. There is no pain ovation of the base of the fifth metatarsal. DP pulses palpable. There is no neurologic findings. Medical Decision Making per the [place] ankle rule patient will need an x-ray to evaluate for sprain versus fracture. Other additions or changes: [None] Radiography Chest X-Ray - ED: Read by ED Physician (Three-view x-ray of the ankle is negative. There is no evidence of fracture, subluxation or dislocation.) Diagnostic Testing: Clinical Impression(s) from Imaging Studies Ankle X-Ray 02/06/25 16:40 IMPRESSION: Soft tissue swelling. No acute fracture Reading Location: [facility] Discharge Plan Triage Chief Complaint: Lower Extremity Injury ED Midlevel Provider: Brit Godfrey ED Provider: Fidencio Stanley Dx/Rx/DC Orders Clinical Impression: Left ankle sprain, Elevated blood-pressure reading without diagnosis of hypertension Instructions: ED Ankle Sprain (Adult) Prescriptions: No Action cetirizine [Zyrtec] 10 mg tablet 10 mg PO DAILY fluticasone propionate [24 Hour Allergy Relief] 50 mcg/actuation spray,suspension 2 spray intranasal DAILY Rx Instructions: administer into each nostril Primary Care Provider: John Colin Referrals: John Colin MD [Primary Care Provider] - Activity Restrictions/Additional Instructions: Ice your ankle, keep it elevated to help with swelling, alternate Tylenol and ibuprofen as needed for pain. Print Language: Greenlandic Disposition Disposition: Home, Self Care Discharge Date/Time: 02/06/25 17:07
[2025-02-06 17:06] VITALS: BP 125/99; PULSE 89; RESP 14; TEMP 36.6; O2SAT 100
== END 2025-02-06 17:07 | disposition home or self-care (01) ==
PROVIDERS: Emergency Provider Emergency Medicine; PCP Family Medicine; Visit Provider Emergency Medicine
DX: S93.402A Sprain of unspecified ligament of left ankle, initial encounter (principal); R03.0 Elevated blood-pressure reading, without diagnosis of hypertension; X58.XXXA Exposure to other specified factors, initial encounter
CPT/HCPCS: 73610; 99282